=== PATIENT | male | born 1975 | race Caucasian/White ===

== ENCOUNTER 2016-12-28 06:26 | Day surgery (SDC) | payer BC ==
[~2016-12-28] VITALS: Ht 175.3 cm; Wt 123.0 kg
[~2016-12-28 06:26] MED LIST: AMOX TR-K CLV1 EAC4 PO; BENTYL20 MG PO; CRESTOR5 MG PO; DILAUDID2 MG PO; DURICEF1 GM PO; FAMOTIDINE20 MG PO; FENOFIBRATE145 M1 PO; FLAGYL500 MG PO; FLEXERIL10 MG PO; LEVAQUIN500 MG PO; LEVAQUIN750 MG PO; LOMOTIL TABLET1 EACH PO; MOTRIN800 MG PO; NAPROSYN500 MG PO; NAPROXEN500 MG PO; NIACIN500 M4 PO; NORCO 5/3251 TABLET PO; NUVIGIL150 MG PO; NUVIGIL50 MG PO; PANTOPRAZOLE SO40 MG PO; PERCOCET 5/31 TABLET PO; PHENERGAN-CODE120 ML PO; PREDNISONE20 MG PO; PROAIR RESPICL90 MCG IH; PROMETHAZINE HC25 M1 PO; PROTONIX40 MG PO; PROZAC20 MG PO; PROZAC40 MG PO; RANITIDINE HCL300 MG PO; TRAMADOL HCL50 MG PO; TRICOR145 MG PO; VICODIN,LORT1 TABLET PO; VITAMIN B122500 MC1 PO; ZANTAC300 MG PO; ZITHROMAX Z-PA250 MG PO; ZOFRAN4 MG PO; [UNRECOGNIZED DRUG - REMARK]
[2016-12-28 07:14] VITALS: BP 132/95
[2016-12-28 16:53] VITALS: BP 156/96
[2016-12-28 20:00] VITALS: BP 156/78
[2016-12-28 23:34] VITALS: BP 137/80
[2016-12-29 03:59] VITALS: BP 122/67
[2016-12-29 07:46] VITALS: BP 138/90
[2016-12-29 07:54] LABS: MCH 31.8 PG (29.0-34.0); MCHC 34.9 G/DL (30.0-36.0); MCV 91.1 FL (86-99); PLATELET COUNT 288 K/uL (156-360); RBC DIS.WIDTH-SD 43.3 % (39-53); RED BLOOD COUNT 4.72 M/uL (4.00-5.50)
[2016-12-29 07:55] LABS: WHITE BLOOD COUNT 19.8 K/uL (4.1-10.2)
[2016-12-29 08:03] LABS: ALKALINE PHOSPHATASE 42 IU/L (3-129); ANION GAP 8 MEQ/L (2-14); CHLORIDE 101 MEQ/L (99-109); GFR ESTIMATE (CALCULATED) > 59 mL/min/; GLUCOSE 106 mg/dL (70-99); MAGNESIUM 1.8 mg/dl (1.3-2.7); POTASSIUM 4.7 MEQ/L (3.7-5.4); SAMPLE HEMOLYSIS CHECK 0; SAMPLE ICTERIC CHECK 0; SAMPLE LIPEMIA CHECK 0; SODIUM 137 MEQ/L (136-147); TOTAL BILIRUBIN 0.6 MG/DL (0.0-1.0); UREA NITROGEN (BUN) 17 mg/dL (9-23)
[2016-12-29] MEDS ORDERED: PERCOCET 5/31 TABLET PO (08:51)
[2016-12-29] MEDS ORDERED: COLACE100 MG PO (08:51)
[2016-12-29 11:17] VITALS: BP 130/76
[2016-12-29 14:26] LABS: EOSINOPHIL (%) 0.1 % (0-5); HEMATOCRIT 42.3 % (38.0-50.0); IMMATURE GRANULOCYTE (%) 0.3 % (0.0-0.7); IMMATURE GRANULOCYTE COUNT 0.1 K/uL; MCH 30.3 PG (29.0-34.0); MCHC 33.6 G/DL (30.0-36.0); MCV 90.2 FL (86-99); MEAN PLAT.VOLUME 10.5 uM^3 (9.0-12.4); MONOCYTE (%) 8.5 % (3-12); MONOCYTE COUNT 1.5 K/uL (0-0.8); NEUTROPHIL COUNT 14.5 K/uL (1.8-6.4); PLATELET COUNT 262 K/uL (156-360); RBC DIS.WIDTH-SD 42.4 % (39-53); RED BLOOD COUNT 4.69 M/uL (4.00-5.50); WHITE BLOOD COUNT 18.1 K/uL (4.1-10.2)
[2016-12-29 14:50] LABS: ALKALINE PHOSPHATASE 38 IU/L (3-129); ANION GAP 7 MEQ/L (2-14); CHLORIDE 100 MEQ/L (99-109); GFR ESTIMATE (CALCULATED) > 59 mL/min/; GLUCOSE 116 mg/dL (70-99); POTASSIUM 4.6 MEQ/L (3.7-5.4); SAMPLE HEMOLYSIS CHECK 0; SAMPLE ICTERIC CHECK 0; SAMPLE LIPEMIA CHECK 0; SODIUM 136 MEQ/L (136-147); TOTAL BILIRUBIN 0.5 MG/DL (0.0-1.0); UREA NITROGEN (BUN) 17 mg/dL (9-23)
[2016-12-29 16:12] VITALS: BP 140/73
== END 2016-12-29 17:03 | disposition home or self-care (01) ==
LOC: SDC → 2SOUTH 13:30 → 2EAST 13:30
PROVIDERS: Surgery
PROC: 0DQ Gastrointestinal System, Repair (ICD-10-PCS; principal; 2016-12-28)
PROC: 0DN88ZZ Release Small Intestine, Via Natural or Artificial Opening Endoscopic (ICD-10-PCS; principal; 2016-12-28)
PROC: 0WUF4JZ Supplement Abdominal Wall with Synthetic Substitute, Percutaneous Endoscopic Approach (ICD-10-PCS; principal; 2016-12-28)
PROC: 0DNS4ZZ (ICD-10-PCS; principal; 2016-12-28)
DX: K43.0 Incisional hernia with obstruction, without gangrene (principal); K66.0 Peritoneal adhesions (postprocedural) (postinfection); M25.511 Pain in right shoulder; M25.512 Pain in left shoulder; K21.9 Gastro-esophageal reflux disease without esophagitis; M19.90 Unspecified osteoarthritis, unspecified site; Z87.19 Personal history of other diseases of the digestive system; F17.200 Nicotine dependence, unspecified, uncomplicated; Z86.718 Personal history of other venous thrombosis and embolism
CPT/HCPCS: 80053; 83735; 84100; 85025; 85027; 88302; C1781; G0378; J0131; J0330; J0690; J1100; J1170; J1650; J2250; J2405; J2710; J3010; J7120

== ENCOUNTER 2017-01-08 12:52 | Observation (INO) | payer BC ==
[~2017-01-08] VITALS: Ht 175.3 cm; Wt 124.9 kg
[~2017-01-08 12:52] MED LIST changes: +COLACE100 MG PO
[2017-01-08] MEDS ORDERED: ZANTAC150 MG PO (13:08)
[2017-01-08 13:44] LABS: BASOPHIL COUNT 0.1 K/uL (0-0.1); EOSINOPHIL (%) 2.3 % (0-5); EOSINOPHIL COUNT 0.3 K/uL (0-0.3); HEMATOCRIT 43.6 % (38.0-50.0); IMMATURE GRANULOCYTE (%) 0.2 % (0.0-0.7); IMMATURE GRANULOCYTE COUNT 0.2 K/uL; LYMPHOCYTE COUNT 2.1 K/uL (1.0-2.8); MCH 30.9 PG (29.0-34.0); MCHC 35.6 G/DL (30.0-36.0); MCV 86.9 FL (86-99); MONOCYTE (%) 6.4 % (3-12); MONOCYTE COUNT 0.8 K/uL (0-0.8); NEUTROPHIL (%) 74.3 % (45-76); NEUTROPHIL COUNT 9.6 K/uL (1.8-6.4); RBC DIS.WIDTH-CV 12.4 % (11.8-14.6); RED BLOOD COUNT 5.02 M/uL (4.00-5.50); WHITE BLOOD COUNT 12.9 K/uL (4.1-10.2)
[2017-01-08 13:46] LABS: MEAN PLAT.VOLUME 9.8 uM^3 (9.0-12.4); PLATELET COUNT 357 K/uL (156-360)
[2017-01-08 13:52] LABS: CHLORIDE 107 mEq/L (99-109); POTASSIUM 4.2 mEq/L (3.7-5.4); SODIUM 140 mEq/L (136-147)
[2017-01-08 13:54] LABS: GLUCOSE 106 mg/dL (70-99)
[2017-01-08 13:55] LABS: ANION GAP 9 MEQ/L (2-14)
[2017-01-08 13:56] LABS: TOTAL BILIRUBIN 0.3 mg/dL (0.0-1.0)
[2017-01-08 13:58] LABS: ALKALINE PHOSPHATASE 52 IU/L (3-129); GFR ESTIMATE (CALCULATED) > 59 mL/min/
[2017-01-08 13:59] LABS: UREA NITROGEN (BUN) 14 mg/dL (9-23)
[2017-01-08 14:00] LABS: ADD MIUA? NO; BILIRUBIN NEGATIVE; BLOOD NEGATIVE; COLOR YELLOW ((YELLOW)); GLUCOSE (STRIP) NEGATIVE; KETONES NEGATIVE; LEUKOCYTES NEGATIVE; NITRITE NEGATIVE; PROTEIN (STRIP) NEGATIVE; SPECIFIC GRAVITY 1.025 (1.000-1.030); UCUL ADDED? NO; UROBILINOGEN 0.2 MG/DL (0.2-1.0)
[2017-01-08 14:01] LABS: LIPASE 17 U/L (1.0-51.0)
[2017-01-08] MEDS ORDERED: ZANTAC300 MG PO (17:21)
[2017-01-08] MEDS ORDERED: DULERA 100 MCG/13 GM IH (17:23)
[2017-01-08] MEDS ORDERED: ONE DAILY FOR1 EACH PO (17:23)
[2017-01-08] MEDS ORDERED: PROAIR HFA8.5 GM IH (17:23)
[2017-01-08] MEDS ORDERED: COLACE100 MG PO (17:24)
[2017-01-08] MEDS ORDERED: ALBUTEROL2.5 MG/3 M IH (17:25)
[2017-01-08] MEDS ORDERED: VITAMIN D5000 UNI1 PO (17:26)
[2017-01-08 19:54] VITALS: BP 145/95
[2017-01-09 04:33] VITALS: BP 103/66
[2017-01-09 06:46] LABS: EOSINOPHIL (%) 3.1 % (0-5); EOSINOPHIL COUNT 0.5 K/uL (0-0.3); HEMATOCRIT 42.3 % (38.0-50.0); IMMATURE GRANULOCYTE (%) 0.4 % (0.0-0.7); IMMATURE GRANULOCYTE COUNT 0.1 K/uL; LYMPHOCYTE COUNT 2.7 K/uL (1.0-2.8); MCH 31.5 PG (29.0-34.0); MCHC 34.3 G/DL (30.0-36.0); MEAN PLAT.VOLUME 10.7 uM^3 (9.0-12.4); MONOCYTE (%) 7.5 % (3-12); MONOCYTE COUNT 1.1 K/uL (0-0.8); NEUTROPHIL (%) 70.9 % (45-76); NEUTROPHIL COUNT 10.6 K/uL (1.8-6.4); PLATELET COUNT 317 K/uL (156-360); RBC DIS.WIDTH-CV 12.9 % (11.8-14.6); RBC DIS.WIDTH-SD 42.8 % (39-53); RED BLOOD COUNT 4.61 M/uL (4.00-5.50); WHITE BLOOD COUNT 14.9 K/uL (4.1-10.2)
[2017-01-09 06:47] LABS: MCV 91.8 FL (86-99)
[2017-01-09 06:48] LABS: ALKALINE PHOSPHATASE 53 IU/L (3-129); ANION GAP 6 MEQ/L (2-14); CHLORIDE 105 MEQ/L (99-109); GFR ESTIMATE (CALCULATED) > 59 mL/min/; GLUCOSE 92 mg/dL (70-99); MAGNESIUM 1.8 mg/dl (1.3-2.7); POTASSIUM 4.1 MEQ/L (3.7-5.4); SAMPLE HEMOLYSIS CHECK 0; SAMPLE ICTERIC CHECK 0; SAMPLE LIPEMIA CHECK 0; SODIUM 140 MEQ/L (136-147); TOTAL BILIRUBIN 0.5 MG/DL (0.0-1.0); UREA NITROGEN (BUN) 11 mg/dL (9-23)
[2017-01-09 11:48] VITALS: BP 112/66
== END 2017-01-09 15:13 | disposition home or self-care (01) ==
LOC: EME 12:52 → EDOF 18:27 → 5WEST 18:27
PROVIDERS: Emergency Medicine; Surgery
DX: K56.60 Unspecified intestinal obstruction (principal); F32.9 Major depressive disorder, single episode, unspecified
CPT/HCPCS: 74176; 74177; 80053; 81003; 83605; 83690; 83735; 84100; 85025; 93005; 99281; 99285; G0378; J1170; J1200; J1650; J2405; J3010; J7030; J7050; J7120

== ENCOUNTER 2017-06-05 23:00 | Inpatient (IN) | payer BC ==
[~2017-06-05] VITALS: Ht 175.3 cm; Wt 124.0 kg
[~2017-06-05 23:00] MED LIST changes: +ALBUTEROL2.5 MG/3 M IH; +DULERA 100 MCG/13 GM IH; +ONE DAILY FOR1 EACH PO; +PROAIR HFA8.5 GM IH; +VITAMIN D5000 UNI1 PO; +ZANTAC150 MG PO
[2017-06-06 00:12] LABS: HEMATOCRIT 47.8 % (38.0-50.0); MCH 30.3 PG (29.0-34.0); MCHC 34.5 G/DL (30.0-36.0); MCV 87.7 FL (86-99); PLATELET COUNT 274 K/uL (156-360); RBC DIS.WIDTH-CV 12.6 % (11.8-14.6); RBC DIS.WIDTH-SD 40.8 % (39-53); RED BLOOD COUNT 5.45 M/uL (4.00-5.50); WHITE BLOOD COUNT 11.7 K/uL (4.1-10.2)
[2017-06-06 00:26] LABS: CHLORIDE 105 mEq/L (99-109); SODIUM 140 mEq/L (136-147)
[2017-06-06 00:28] LABS: GLUCOSE 109 mg/dL (70-99)
[2017-06-06 00:29] LABS: ANION GAP 11 MEQ/L (2-14)
[2017-06-06 00:30] LABS: TOTAL BILIRUBIN 0.4 mg/dL (0.0-1.0)
[2017-06-06 00:32] LABS: ALKALINE PHOSPHATASE 54 IU/L (3-129); GFR ESTIMATE (CALCULATED) > 59 mL/min/
[2017-06-06 00:33] LABS: UREA NITROGEN (BUN) 13 mg/dL (9-23)
[2017-06-06 00:35] LABS: LIPASE 20 U/L (1.0-51.0)
[2017-06-06 03:24] VITALS: BP 106/58
[2017-06-06 08:05] VITALS: BP 108/60
[2017-06-06 16:08] VITALS: BP 127/93
== END 2017-06-06 17:32 | disposition home or self-care (01) | DRG 389 ==
LOC: EME 23:00 → EDOF 06-06 02:12 → ENRESERV 06-06 02:13 → 5EAST 06-06 03:05
PROVIDERS: Physician Assistant
DX: K56.5 Intestinal adhesions [bands] with obstruction (postinfection) (principal); K91.872 Postprocedural seroma of a digestive system organ or structure following a digestive system procedure; F33.9 Major depressive disorder, recurrent, unspecified; E11.9 Type 2 diabetes mellitus without complications; I10 Essential (primary) hypertension; F17.210 Nicotine dependence, cigarettes, uncomplicated; Z90.49 Acquired absence of other specified parts of digestive tract; Z86.718 Personal history of other venous thrombosis and embolism
CPT/HCPCS: 74177; 80053; 83605; 83690; 85027; 99202; 99281; 99285; J1170; J1200; J2270; J2405; J3010; J7030; J7050; J7120; S0028

== ENCOUNTER → 2017-08-14 | Outpatient (CLI) | payer BC ==
[~2017-08-14] VITALS: Ht 174 cm; Wt 121.5 kg
== END | disposition home or self-care (01) ==
LOC: AMB 08-07 12:30
PROC: 0DJ08ZZ Inspection of Upper Intestinal Tract, Via Natural or Artificial Opening Endoscopic (ICD-10-PCS; principal; 2017-08-14)
DX: K44.9 Diaphragmatic hernia without obstruction or gangrene (principal); K21.9 Gastro-esophageal reflux disease without esophagitis; K29.60 Other gastritis without bleeding; E66.01 Morbid (severe) obesity due to excess calories; Z68.41 Body mass index [BMI] 40.0-44.9, adult; G47.30 Sleep apnea, unspecified; E78.5 Hyperlipidemia, unspecified; K76.0 Fatty (change of) liver, not elsewhere classified; Z87.19 Personal history of other diseases of the digestive system; F17.200 Nicotine dependence, unspecified, uncomplicated
CPT/HCPCS: J2250

== ENCOUNTER 2017-10-18 21:17 | Inpatient (IN) | payer BC ==
[~2017-10-18] VITALS: Ht 174 cm; Wt 121.5 kg
[~2017-10-18 21:17] MED LIST changes: +FLOMAX0.4 MG PO; +ZOFRAN ODT4 MG PO
[2017-10-19] MEDS ORDERED: VENTOLIN HFA18 GM IH (12:34)
[2017-10-19 12:38] VITALS: BP 110/79
[2017-10-19 13:32] LABS: POINT-OF-CARE METER ID UU14174212; POINT-OF-CARE USER ID AHSRSCSLC11
== END 2017-10-19 19:00 | disposition home or self-care (01) | DRG 357 ==
LOC: ENRESERV 21:17 → 2SOUTH 10-19 09:15 → ENRESERV 10-19 11:57 → 2SOUTH 10-19 12:10 → ENRESERV 10-19 14:53 → 2SOUTH 10-19 19:00
PROVIDERS: Surgery
PROC: 0DJU4ZZ Inspection of Omentum, Percutaneous Endoscopic Approach (ICD-10-PCS; principal; 2017-10-19)
DX: K21.9 Gastro-esophageal reflux disease without esophagitis (principal); E66.01 Morbid (severe) obesity due to excess calories; K66.0 Peritoneal adhesions (postprocedural) (postinfection); Z53.09 Procedure and treatment not carried out because of other contraindication; G47.30 Sleep apnea, unspecified; N20.0 Calculus of kidney; Z68.41 Body mass index [BMI] 40.0-44.9, adult; F17.210 Nicotine dependence, cigarettes, uncomplicated; Z86.718 Personal history of other venous thrombosis and embolism; K46.9 Unspecified abdominal hernia without obstruction or gangrene
CPT/HCPCS: 82948; J0131; J0690; J1100; J1644; J2250; J2405; J3010; S0020

== ENCOUNTER 2017-11-07 22:09 | Emergency (ER) | payer BC ==
[~2017-11-07] VITALS: Ht 175.3 cm; Wt 120.2 kg
[~2017-11-07 22:09] MED LIST changes: +VENTOLIN HFA18 GM IH
[2017-11-07 22:50] LABS: HEMATOCRIT 46.4 % (38.0-50.0); MCH 31.7 PG (29.0-34.0); MCHC 34.5 G/DL (30.0-36.0); MCV 91.9 FL (86-99); PLATELET COUNT 253 K/uL (156-360); RBC DIS.WIDTH-CV 12.3 % (11.8-14.6); RED BLOOD COUNT 5.05 M/uL (4.00-5.50); WHITE BLOOD COUNT 9.4 K/uL (4.1-10.2)
[2017-11-07 22:50] LABS: APPEARANCE SL.HAZY ((CLEAR)); BILIRUBIN NEGATIVE; BLOOD LARGE; COLOR YELLOW ((YELLOW)); GLUCOSE (STRIP) NEGATIVE; KETONES NEGATIVE; LEUKOCYTES TRACE; NITRITE NEGATIVE; PROTEIN (STRIP) NEGATIVE; SPECIFIC GRAVITY 1.016 (1.000-1.030)
[2017-11-07 22:53] LABS: BACTERIA RARE /HPF; EPITHELIAL CELLS RARE /HPF; MUCUS TRACE /LPF; RED BLOOD CELLS TNTC /HPF (0-5); UCUL ADDED? YES
[2017-11-07 23:03] LABS: CHLORIDE 104 mEq/L (99-109); POTASSIUM 4.3 mEq/L (3.7-5.4); SODIUM 142 mEq/L (136-147)
[2017-11-07 23:05] LABS: GLUCOSE 110 mg/dL (70-99); TOTAL PROTEIN 7.4 g/dL (6.4-8.3)
[2017-11-07 23:07] LABS: TOTAL BILIRUBIN 0.4 mg/dL (0.0-1.0)
[2017-11-07 23:08] LABS: ALKALINE PHOSPHATASE 63 IU/L (3-129)
[2017-11-07 23:09] LABS: CREATININE 1.4 mg/dL (0.6-1.3); GFR ESTIMATE (CALCULATED) 59 mL/min/ (58.99-99999)
[2017-11-07 23:11] LABS: ALT (GPT) 33 IU/L (3-49); AST (GOT) 20 IU/L (2-34); UREA NITROGEN (BUN) 14 mg/dL (9-23)
[2017-11-07 23:38] LABS: LIPASE 12 U/L (1.0-51.0)
[2017-11-08] MEDS ORDERED: ZOFRAN4 MG PO (00:26)
[2017-11-08] MEDS ORDERED: PERCOCET 5/31 TABLET PO (00:26)
[2017-11-08] MEDS ORDERED: FLOMAX0.4 MG PO (00:26)
[2017-11-08 00:53] VITALS: BP 124/75
== END 2017-11-08 00:55 | disposition home or self-care (01) ==
LOC: EME 22:09
DX: N13.2 Hydronephrosis with renal and ureteral calculous obstruction (principal); R31.9 Hematuria, unspecified; R30.0 Dysuria; K57.30 Diverticulosis of large intestine without perforation or abscess without bleeding; Z90.49 Acquired absence of other specified parts of digestive tract; J45.909 Unspecified asthma, uncomplicated; E78.5 Hyperlipidemia, unspecified; Z87.442 Personal history of urinary calculi; F17.200 Nicotine dependence, unspecified, uncomplicated
CPT/HCPCS: 74177; 80053; 81003; 83605; 83690; 85027; 87086; 99281; 99284; J1170; J2405; J7030; J7050

== ENCOUNTER 2017-11-16 23:50 | Emergency (ER) | payer BC ==
[~2017-11-16] VITALS: Ht 175.3 cm; Wt 120.1 kg
[2017-11-17 00:33] LABS: HEMATOCRIT 45.4 % (38.0-50.0); HEMOGLOBIN 15.8 G/DL (12.5-16.6); MCH 31.3 PG (29.0-34.0); MCHC 34.8 G/DL (30.0-36.0); MCV 90.1 FL (86-99); PLATELET COUNT 299 K/uL (156-360); RBC DIS.WIDTH-CV 12.3 % (11.8-14.6); RBC DIS.WIDTH-SD 39.9 % (39-53); RED BLOOD COUNT 5.04 M/uL (4.00-5.50); WHITE BLOOD COUNT 13.5 K/uL (4.1-10.2)
[2017-11-17 00:41] LABS: ALBUMIN 4.1 g/dL (3.2-4.8); CHLORIDE 105 mEq/L (99-109); POTASSIUM 3.7 mEq/L (3.7-5.4); SODIUM 143 mEq/L (136-147)
[2017-11-17 00:43] LABS: GLUCOSE 111 mg/dL (70-99)
[2017-11-17 00:44] LABS: TOTAL PROTEIN 6.9 g/dL (6.4-8.3)
[2017-11-17 00:45] LABS: TOTAL BILIRUBIN 0.4 mg/dL (0.0-1.0)
[2017-11-17 00:47] LABS: ALKALINE PHOSPHATASE 49 IU/L (3-129); CREATININE 1.2 mg/dL (0.6-1.3); GFR ESTIMATE (CALCULATED) > 59 mL/min/ (58.99-99999)
[2017-11-17 00:48] LABS: UREA NITROGEN (BUN) 17 mg/dL (9-23)
[2017-11-17 00:49] LABS: AST (GOT) 19 IU/L (2-34)
[2017-11-17 00:50] LABS: ALT (GPT) 35 IU/L (3-49); LIPASE 14 U/L (1.0-51.0)
[2017-11-17 04:01] LABS: APPEARANCE CLEAR ((CLEAR)); BILIRUBIN NEGATIVE; BLOOD NEGATIVE; COLOR YELLOW ((YELLOW)); GLUCOSE (STRIP) NEGATIVE; KETONES NEGATIVE; LEUKOCYTES NEGATIVE; NITRITE NEGATIVE; PROTEIN (STRIP) NEGATIVE; UCUL ADDED? NO
[2017-11-17 04:14] LABS: SPECIFIC GRAVITY 1.072 (1.000-1.030)
[2017-11-17] MEDS ORDERED: ZOFRAN ODT8 MG PO (04:48)
[2017-11-17] MEDS ORDERED: BENTYL20 MG PO (04:48)
[2017-11-17 05:25] VITALS: BP 119/69
== END 2017-11-17 05:26 | disposition home or self-care (01) ==
LOC: EME → EDBD 23:50 → EME 11-17 05:26
PROVIDERS: Physician Assistant
DX: R10.84 Generalized abdominal pain (principal); E86.0 Dehydration; R11.2 Nausea with vomiting, unspecified; Z87.442 Personal history of urinary calculi; Z90.49 Acquired absence of other specified parts of digestive tract; F17.200 Nicotine dependence, unspecified, uncomplicated; E78.5 Hyperlipidemia, unspecified; J45.909 Unspecified asthma, uncomplicated; F32.9 Major depressive disorder, single episode, unspecified; F41.9 Anxiety disorder, unspecified
CPT/HCPCS: 74177; 80053; 81003; 83605; 83690; 85027; 99281; 99285; J0500; J1885; J2405; J2765; J3010; J7030

== ENCOUNTER 2017-11-19 10:24 | Emergency (ER) | payer BC ==
[~2017-11-19] VITALS: Ht 175.3 cm; Wt 122.5 kg
[~2017-11-19 10:24] MED LIST changes: +ZOFRAN ODT8 MG PO
[2017-11-19 11:03] LABS: APPEARANCE CLEAR ((CLEAR)); BILIRUBIN NEGATIVE; BLOOD NEGATIVE; COLOR YELLOW ((YELLOW)); GLUCOSE (STRIP) NEGATIVE; KETONES NEGATIVE; LEUKOCYTES NEGATIVE; NITRITE NEGATIVE; PROTEIN (STRIP) NEGATIVE; SPECIFIC GRAVITY 1.017 (1.000-1.030); UCUL ADDED? NO; UROBILINOGEN 0.2 MG/DL (0.2-1.0)
[2017-11-19 11:21] LABS: HEMOGLOBIN 15.9 G/DL (12.5-16.6); MCH 31.4 PG (29.0-34.0); MCHC 34.6 G/DL (30.0-36.0); MCV 90.9 FL (86-99); PLATELET COUNT 267 K/uL (156-360); RBC DIS.WIDTH-CV 12.3 % (11.8-14.6); RBC DIS.WIDTH-SD 40.8 % (39-53); RED BLOOD COUNT 5.06 M/uL (4.00-5.50); WHITE BLOOD COUNT 9.4 K/uL (4.1-10.2)
[2017-11-19 11:31] LABS: ALBUMIN 4.2 g/dL (3.2-4.8)
[2017-11-19 11:32] LABS: CHLORIDE 106 mEq/L (99-109); POTASSIUM 3.9 mEq/L (3.7-5.4); SODIUM 141 mEq/L (136-147)
[2017-11-19 11:34] LABS: GLUCOSE 132 mg/dL (70-99); TOTAL PROTEIN 7.2 g/dL (6.4-8.3)
[2017-11-19 11:36] LABS: TOTAL BILIRUBIN 0.4 mg/dL (0.0-1.0)
[2017-11-19 11:37] LABS: ALKALINE PHOSPHATASE 52 IU/L (3-129)
[2017-11-19 11:38] LABS: CREATININE 1.3 mg/dL (0.6-1.3); GFR ESTIMATE (CALCULATED) > 59 mL/min/ (58.99-99999)
[2017-11-19 11:39] LABS: AST (GOT) 27 IU/L (2-34); UREA NITROGEN (BUN) 15 mg/dL (9-23)
[2017-11-19 11:40] LABS: ALT (GPT) 30 IU/L (3-49)
[2017-11-19 11:41] LABS: LIPASE 12 U/L (1.0-51.0)
[2017-11-19] MEDS ORDERED: PERCOCET 5/31 TABLET PO (12:08)
[2017-11-19 13:03] VITALS: BP 122/77
== END 2017-11-19 13:06 | disposition home or self-care (01) ==
LOC: EME 10:24
DX: R10.9 Unspecified abdominal pain (principal); Z87.19 Personal history of other diseases of the digestive system; Z90.49 Acquired absence of other specified parts of digestive tract; F17.200 Nicotine dependence, unspecified, uncomplicated; J45.909 Unspecified asthma, uncomplicated; E78.5 Hyperlipidemia, unspecified; K21.9 Gastro-esophageal reflux disease without esophagitis; Z86.718 Personal history of other venous thrombosis and embolism
CPT/HCPCS: 80053; 81003; 83690; 85027; 99281; 99284

== ENCOUNTER 2018-01-16 10:22 | Emergency (ER) | payer BC ==
[~2018-01-16] VITALS: Ht 175.3 cm; Wt 123.1 kg
[2018-01-16 11:17] LABS: HEMATOCRIT 48.6 % (38.0-50.0); HEMOGLOBIN 16.9 G/DL (12.5-16.6); MCH 31.2 PG (29.0-34.0); MCHC 34.8 G/DL (30.0-36.0); MCV 89.7 FL (86-99); PLATELET COUNT 288 K/uL (156-360); RBC DIS.WIDTH-CV 12.5 % (11.8-14.6); RBC DIS.WIDTH-SD 40.5 % (39-53); RED BLOOD COUNT 5.42 M/uL (4.00-5.50); WHITE BLOOD COUNT 16.2 K/uL (4.1-10.2)
[2018-01-16 11:27] LABS: ALBUMIN 4.6 g/dL (3.2-4.8); CHLORIDE 107 mEq/L (99-109); POTASSIUM 4.6 mEq/L (3.7-5.4)
[2018-01-16 11:28] LABS: SODIUM 142 mEq/L (136-147)
[2018-01-16 11:30] LABS: GLUCOSE 122 mg/dL (70-99); TOTAL PROTEIN 7.8 g/dL (6.4-8.3)
[2018-01-16 11:32] LABS: TOTAL BILIRUBIN 0.6 mg/dL (0.0-1.0)
[2018-01-16 11:33] LABS: ALKALINE PHOSPHATASE 60 IU/L (3-129); CREATININE 1.2 mg/dL (0.6-1.3); GFR ESTIMATE (CALCULATED) > 59 mL/min/ (58.99-99999)
[2018-01-16 11:35] LABS: AST (GOT) 17 IU/L (2-34); UREA NITROGEN (BUN) 20 mg/dL (9-23)
[2018-01-16 11:36] LABS: ALT (GPT) 29 IU/L (3-49)
[2018-01-16 11:37] LABS: LIPASE 8 U/L (1.0-51.0)
[2018-01-16 12:09] LABS: APPEARANCE SL.HAZY ((CLEAR)); BILIRUBIN NEGATIVE; BLOOD NEGATIVE; COLOR YELLOW ((YELLOW)); GLUCOSE (STRIP) NEGATIVE; KETONES NEGATIVE; LEUKOCYTES TRACE; NITRITE NEGATIVE; PROTEIN (STRIP) 30; SPECIFIC GRAVITY 1.028 (1.000-1.030); UROBILINOGEN 0.2 MG/DL (0.2-1.0)
[2018-01-16 12:32] LABS: BACTERIA NONE SEEN /HPF; EPITHELIAL CELLS RARE /HPF; MUCUS TRACE /LPF
[2018-01-16] MEDS ORDERED: LEVSIN-SL0.125 MG SL (13:14)
[2018-01-16] MEDS ORDERED: ZOFRAN ODT4 MG PO (13:14)
[2018-01-16 14:09] VITALS: BP 104/71
== END 2018-01-16 14:11 | disposition home or self-care (01) ==
LOC: EME 10:22
PROVIDERS: Nurse Practitioner Family
DX: K52.9 Noninfective gastroenteritis and colitis, unspecified (principal); K42.9 Umbilical hernia without obstruction or gangrene; K76.0 Fatty (change of) liver, not elsewhere classified; R00.0 Tachycardia, unspecified; E78.5 Hyperlipidemia, unspecified; J45.909 Unspecified asthma, uncomplicated; Z87.442 Personal history of urinary calculi; Z86.718 Personal history of other venous thrombosis and embolism; F17.200 Nicotine dependence, unspecified, uncomplicated
CPT/HCPCS: 74177; 80053; 81003; 83690; 85027; 99281; 99285; J1885; J2270; J2405; J7030